=== PATIENT | female | born 1960 | race Caucasian/White ===

== ENCOUNTER 2016-09-26 16:36 | Emergency (ER) | payer OTHER, MEDICARE | END 2016-09-26 19:39 | disposition home or self-care (01) | LOC: FER 16:36 | DX: H60.91 Unspecified otitis externa, right ear (principal); J01.90 Acute sinusitis, unspecified; R05 Cough; I10 Essential (primary) hypertension; F32.9 Major depressive disorder, single episode, unspecified; Z88.2 Allergy status to sulfonamides; Z79.899 Other long term (current) drug therapy | CPT/HCPCS: 99282 ==

== ENCOUNTER 2021-02-08 11:48 | Emergency (ER) | payer OTHER, MEDICARE ==
[~2021-02-08 11:48] MED LIST: ZOFRAN4 MG PO
== END 2021-02-08 15:09 | disposition home or self-care (01) ==
LOC: FER 11:48
DX: M17.12 Unilateral primary osteoarthritis, left knee (principal); I10 Essential (primary) hypertension; X50.1XXA Overexertion from prolonged static or awkward postures, initial encounter; Y92.009 Unspecified place in unspecified non-institutional (private) residence as the place of occurrence of the external cause
CPT/HCPCS: 73564; J1170

== ENCOUNTER 2021-04-23 10:19 | Emergency (ER) | payer OTHER, MEDICARE ==
[~2021-04-23] VITALS: Ht 157.5 cm; Wt 90.7 kg
== END 2021-04-23 11:29 | disposition home or self-care (01) ==
LOC: FER 10:19
DX: R21 Rash and other nonspecific skin eruption (principal); I10 Essential (primary) hypertension; Z71.1 Person with feared health complaint in whom no diagnosis is made; Z88.2 Allergy status to sulfonamides; Z88.6 Allergy status to analgesic agent; Z88.1 Allergy status to other antibiotic agents
CPT/HCPCS: 99282